=== PATIENT | male | born 1960 | race Asian ===

== ENCOUNTER 2017-01-30 16:52 | Emergency (ER) | payer OTHER ==
[2017-01-30 16:52] VITALS: BP 122/88; PULSE 102; RESP 16; O2SAT 94
[~2017-01-30 16:52] MED LIST: HYDR-4003 PO; ONDA4TAB6 PO
--- NOTE | 2017-01-30 18:47 | ED.REPORT ---
HPI-General Illness Date of Service Jan 30, 2017 ED Provider: Mainor Peace MD The patient is a 56 year old male presenting to the ED via EMS with his grainer machine due to alcohol intoxication at ~1600 in which he was sleeping at [facility]. The patient claims that he only drank 2-3 shots of whiskey and that he has "thrown away everything" - when asked to clarify later, patient states that he has been drinking extensively over the past several days. The patient claims he is attending a treatment program for alcohol abuse. The patient denies any memory of the events leading to his arrival in the ED this evening. He denies fever, skin rash, back pain, headache, diarrhea, chest pain, constipation, hematuria, SOB, nausea, vomiting, seizures, or falling. The HPI was gathered via Sinhala historical interpreter and is limited due to patient intoxication. Nursing Notes Stated Complaint: INTOXICATION Chief Complaint: Substance Abuse Nursing Notes Reviewed: Yes Allergies: Coded Allergies: No Known Allergies (Verified , 01/30/17) Scheduled PRN Hydrocodone-Acetaminophen 5-325 mg (Hydrocodone-Acetaminophen 5-325 mg) 1 Each Tablet 1-2 TABLET PO Q4H PRN PRN For Pain Ondansetron (Zofran) 4 Mg Tablet 4 MG PO Q4H PRN PRN For Nausea General Time Seen by MD: 16:57 Chief Complaint Other (alcohol intoxification) Hx Obtained From: Patient, Home Care Scheduler (armenian) Unable to Obtain Hx: Intoxicated Arrived By: Ambulance Onset Occurred: 1 - 4 hours ago Context of Onset: EtOH use Symptom Duration: Since onset Pertinent Negative: Pt denies other symptoms Recent Healthcare: No recent doctor visit, No recent hospitalization Past Medical History Past Medical History Recovering alcoholic Hernia Past Surgical History Hernia repair Endoscopy Family History noncontributory Smoking History Current Every Day Smoker Social History Recovering alcoholic, started drinking 2 months ago Drug Use: Denies drug use Other Social History: Good social support, , Local resident Ambulatory Status Independent Review of Systems Full Review of Systems Constitutional: Denies: Chills, Fever Respiratory: Denies: Shortness of breath Cardiovascular: Denies: Chest pain GI: Reports: Hematochezia, Denies: Constipation, Diarrhea, Nausea, Vomiting Male: Denies Hematuria Musculoskeletal: Denies: Back pain Skin: Denies Rash Neurologic: Denies: Headache, Seizure Complete sys rev & neg: except as marked. Physical Exam Nursing note and vitals reviewed. Constitutional: Disheveled middle-aged male sitting in a chair. No acute distress. Smells of alcohol. Head: Normocephalic and atraumatic. Mouth/Throat: Oropharynx is clear and moist. No oropharyngeal exudate. Eyes: EOM are normal. Pupils are equal, round, and reactive to light. Neck: Supple, no tracheal deviation. Cardiovascular: Normal rate, regular rhythm. Equal and intact distal pulses throughout. Pulmonary/Chest: Effort normal and breath sounds normal. No respiratory distress. Abdominal: Soft. No distension. There is no tenderness, rebound, or guarding. Bowel sounds present. Musculoskeletal: Range of motion grossly intact, moving all extremities. No edema or tenderness appreciated. Neurological: AOx3, however, appears to be intoxicated. Grossly nonfocal exam. Strength and sensation intact and equal to bilateral upper and lower extremities. Skin: Warm and dry, no rashes or pallor appreciated. Psychiatric: Appropriate mood and affect. Behavior appears normal. No suicidal or homicidal ideations. Vital Signs Vital Signs Date Time Temp Pulse Resp B/P Pulse Ox O2 Delivery O2 Flow Rate FiO2 01/30/17 20:51 36.6 99 16 126/82 98 Room Air 01/30/17 16:52 36.3 102 16 122/88 94 Room Air Initial VS: Reviewed Interpretation & Diagnostics Lab Results Interpretation Lab Results Interpretation: LUCINA - 0.36 Re-Eval/Medical Decision Med Decision/Clinical Course 56-year-old male presenting to the ED for evaluation after being found by police sleeping at [facility] earlier this evening. He did not fall, hit his head, and denies any other symptoms, stating only that he has been drinking. Initially stating that he only had 2 or 3 shots of liquor, but upon further questioning admits to drinking heavily over the past several days. Blood alcohol here of 0.36. Given his relatively benign exam, I suspect that he has a significant tolerance for alcohol. He is stating that he wants to be discharged from the emergency department and his grainer machine is with him, states that he can take the patient with him and keep him safe until sober. Patient provided further resources by social work for alcohol abuse and treatment options. His examination is reassuring with no signs of trauma and I do not suspect that there is another reason for his presentation that would require further workup at this time. Plan discharge home with careful return precautions, close outpatient follow-up. Patient and grainer machine agreeable to the plan, no further questions. Source of Hx: EMS, Friend Time of Eval: 19:03 Re-Evaluation/Progress Note: Patient rechecked. Discussed plan to discharge. Patient understands and agrees with plan. All questions addressed at this time. Counseled Regarding: Diagnosis, Lab results, Need for follow-up, When/why to return to ED Discharge & Departure Primary Impression: Alcohol intoxication Complication of substance-induced condition: uncomplicated Qualified Code: F10.120 - Alcohol abuse with intoxication, uncomplicated Disposition: Home Discharge Condition All VS Reviewed: Yes Condition: Improved Patient Instructions: Abuse of Alcohol (ED) Additional Instructions: You have been seen in the ED for evaluation of alcohol intoxication. You do not seem to have any other issues right now that would require you to stay in the Emergency Department given that you would like to leave and have your grainer machine here to take you home, who agrees to watch over you. Please return to the ED immediately if you develop any worsening symptoms, confusion, feel lightheaded or shaky, of if there's anything else of concern to you. Please read the attached instructions. You should get into a treatment plan to try to quit alcohol. Please follow the instructions given to you by the social services analyst. Referrals: Jesica Najera MD (PCP) [facility] Attestation Portions of this note were transcribed by Estella Graves and Richard Crowell. I, Dr. Peace personally performed the history, physical exam and medical decision-making; I reviewed and confirmed the accuracy of the information in the transcribed note. Signed by: Desire Chicas, 01/30/2017 copies to: Jesica Najera MD, William B MD Jan 30, 2017 18:47 Jan 30, 2017 18:55 ESTELLA GRAVES Jan 30, 2017 19:09
[2017-01-30 20:51] VITALS: BP 126/82; PULSE 99; RESP 16; O2SAT 98
== END 2017-01-30 20:50 | disposition home or self-care (01) ==
LOC: SED 16:52
DX: F10.120 Alcohol abuse with intoxication, uncomplicated (principal); F17.200 Nicotine dependence, unspecified, uncomplicated